=== PATIENT | female | born 1995 | race Two or more races ===

== ENCOUNTER 2024-04-25 12:40 | Emergency (ER) | payer MEDICAID, OTHER ==
[~2024-04-25] VITALS: Ht 160 cm; Wt 85.9 kg
[2024-04-25 14:13] VITALS: BP 127/88; PULSE 72; RESP 16; TEMP 98.1; O2SAT 98
--- NOTE | 2024-04-25 14:29 | ED.PDOC ---
Musculoskeletal HPI Comments A 28-year-old female that comes in with some right hip pain that extends down to the lower leg. She states it started with a Charley horse and then progressively got worse. She can not remember a specific event that was causing the pain no injury. Chief Complaint: Lower Extremity Time Seen by MD: 14:02 Reviewed Notes: Nurses Notes, Medications, Allergies Allergies: Coded Allergies: NO KNOWN ALLERGIES (Unverified , 04/25/24) Information Source: Patient Mode of Arrival: Ambulatory Past Medical History Past Medical History (Other): Palpitation Surgical History: Denies all surgeries Social History Smoker: Non-Smoker Alcohol: Denies ETOH Use Drugs: Denies Drug Use Lives In: Home Musculoskeletal: reports: back pain (right hip), joint pain Physical Exam General Appearance: No Apparent Distress, None HEENT: Normal ENT Inspection, PERRL/EOMI, Pharynx Normal, TMs Normal Neck: Non-Tender, Supple Respiratory: Lungs Clear, No Respiratory Distress, Normal Breath Sounds Cardiovascular: Regular Rate/Rhythm Breast Exam: Deferred Gastrointestinal: Non Tender, Normal Bowel Sounds Genitalia: Deferred Pelvic: Deferred Rectal: Deferred Extremities: Other (Pain to the right hip and right lower back. Gait steady) Neurologic: Alert, None, Normal Mood Cerebellar Function: Normal Reflexes: NOT DONE Skin: Dry, Normal Color, Warm Lymphatic: No Adenopathy Was a procedure done? Was a procedure done?: No Differential Diagnosis EXT Differential Diagnosis: Sprain X-Ray, Labs, Meds, VS Vital Signs Date Time Temp Pulse Resp B/P (MAP) Pulse Ox O2 Delivery O2 Flow Rate FiO2 04/25/24 14:13 98.1 72 16 127/88 (101) 98 98.1 04/25/24 13:11 98.1 72 16 122/88 (99) 98 Current Medications Medications (Trade) Dose Ordered Sig/Missy Route Start Time Stop Time Status Last Admin Ketorolac Tromethamine (Toradol Injection) 60 mg ONCE ONCE IM 04/25/24 14:30 04/25/24 14:31 DC 04/25/24 14:36 X-Ray, Labs, Meds, VS Comment Patient seen examined by me. Most likely muscle spasm could be early sciatica. I will give her a shot of Toradol. Time of 1ST Reevaluation: 14:50 Reevaluation 1ST: Improved Patient Education/Counseling: Diagnosis, Treatment, Prognosis, Need For Follow Up Family Education/Counseling: No Family Present Departure 1 Departure Time of Disposition: 14:50 Impression: Primary Impression: Sciatica Disposition: 01 HOME / SELF CARE / HOMELESS Condition: Good Additional Instructions: Use the muscle relaxer at night which might help with the pain you can not drive while taking that medicine Use the anti-inflammatories with food next 4 5 days If you are having continued pain you need to follow up with your primary care doctor for a referral for ortho or PT e-Prescriptions Cyclobenzaprine Hcl (Cyclobenzaprine Hcl) 10 Mg Tab 10 MG PO PRN for 7 Days, #20 TAB Prov: EDMUNDO DENSONP 04/25/24 Ibuprofen Micronized (Ibuprofen) 600 Mg Tab 600 MG PO Q6HPRN PRN for 5 Days, #20 TAB Prov: EDMUNDO DENSONP 04/25/24 Discharged With: Self Critical Care Note Critical Care Time?: No Stability Stability form required: No EDMUNDO DENSONP Apr 25, 2024 14:29
[2024-04-25] MEDS: KETOROLAC TROMETH 60MG/2ML VIAL IM ONE (14:36)
[2024-04-25] MEDS ORDERED: IBUP1TAB5 PO ×2 (14:54→15:18)
[2024-04-25] MEDS ORDERED: CYCL-839 PO ×2 (14:54→15:18)
== END 2024-04-25 14:55 | disposition home or self-care (01) ==
LOC: ER 12:40
DX: M54.41 Lumbago with sciatica, right side (principal)
CPT/HCPCS: 96372; 99283; J1885